=== PATIENT | female | born 1965 | race Caucasian/White ===

== ENCOUNTER 2016-03-26 15:15 | Inpatient (IN) | payer BC ==
[~2016-03-26] VITALS: Ht 170.2 cm; Wt 101.0 kg
[~2016-03-26 15:15] MED LIST: ALLEGRA30 MG PO; ASPIRIN EC325 MG PO; BIOTIN1000 MCG PO; HYDROCODON-ACE1 EAC7 PO; LEVOCETIRIZINE D5 MG PO; LEXAPRO20 MG PO; LIPITOR10 MG PO; LIPITOR5 MG PO; PREMARIN0.3 MG PO; PREMARIN0.625 MG PO; STRATTERA60 MG PO
[2016-03-26] MEDS ORDERED: MOTRIN600 MG PO (15:59)
[2016-03-26 16:10] LABS: BASOPHIL COUNT 0.1 K/uL (0-0.1); EOSINOPHIL (%) 0.9 % (0-5); EOSINOPHIL COUNT 0.1 K/uL (0-0.3); HEMATOCRIT 37.4 % (36.0-46.0); IMMATURE GRANULOCYTE (%) 0.3 % (0.0-0.7); IMMATURE GRANULOCYTE COUNT 0.4 K/uL; LYMPHOCYTE COUNT 1.5 K/uL (1.0-2.8); MCH 30.5 PG (29.0-34.0); MCV 89.7 FL (83-99); MEAN PLAT.VOLUME 10.2 uM^3 (9.5-12.4); MONOCYTE (%) 11.9 % (3-12); MONOCYTE COUNT 1.8 K/uL (0-0.8); NEUTROPHIL (%) 76.4 % (45-76); NEUTROPHIL COUNT 11.5 K/uL (1.8-6.4); PLATELET COUNT 656 K/uL (156-360); RBC DIS.WIDTH-CV 13.7 % (11.8-14.6); RBC DIS.WIDTH-SD 43.5 % (39-53); RED BLOOD COUNT 4.17 M/uL (3.80-5.20)
[2016-03-26 16:16] LABS: CHLORIDE 100 mEq/L (99-109); POTASSIUM 3.9 mEq/L (3.7-5.4); SODIUM 135 mEq/L (136-147)
[2016-03-26 16:19] LABS: GLUCOSE 102 mg/dL (70-99)
[2016-03-26 16:20] LABS: ANION GAP 12 MEQ/L (2-14)
[2016-03-26 16:21] LABS: TOTAL BILIRUBIN 0.5 mg/dL (0.0-1.0)
[2016-03-26 16:22] LABS: ALKALINE PHOSPHATASE 104 IU/L (3-129); GFR ESTIMATE (CALCULATED) > 59 mL/min/
[2016-03-26 16:23] LABS: UREA NITROGEN (BUN) 8 mg/dL (9-23)
[2016-03-26 17:15] LABS: ADD MIUA? NO; BILIRUBIN NEGATIVE; BLOOD NEGATIVE; COLOR YELLOW ((YELLOW)); GLUCOSE (STRIP) NEGATIVE; KETONES NEGATIVE; LEUKOCYTES NEGATIVE; NITRITE NEGATIVE; PROTEIN (STRIP) 30; UCUL ADDED? NO; UROBILINOGEN 0.2 MG/DL (0.2-1.0)
[2016-03-26 17:27] LABS: SPECIFIC GRAVITY 1.071 (1.000-1.030)
[2016-03-26 20:08] VITALS: BP 134/72
[2016-03-26 23:46] VITALS: BP 108/59
[2016-03-27 04:08] VITALS: BP 122/74
[2016-03-27 07:20] VITALS: BP 112/68
[2016-03-27 07:33] LABS: ALKALINE PHOSPHATASE 75 IU/L (3-129); ANION GAP 9 MEQ/L (2-14); CHLORIDE 103 MEQ/L (99-109); GFR ESTIMATE (CALCULATED) > 59 mL/min/; GLUCOSE 118 mg/dL (70-99); HEMATOCRIT 33.2 % (36.0-46.0); MCH 30.2 PG (29.0-34.0); MCHC 32.2 G/DL (30.0-36.0); MEAN PLAT.VOLUME 10.3 uM^3 (9.5-12.4); PLATELET COUNT 579 K/uL (156-360); POTASSIUM 4.1 MEQ/L (3.7-5.4); RBC DIS.WIDTH-CV 14.1 % (11.8-14.6); RBC DIS.WIDTH-SD 48.2 % (39-53); RED BLOOD COUNT 3.54 M/uL (3.80-5.20); SAMPLE HEMOLYSIS CHECK 0; SAMPLE ICTERIC CHECK 0; SAMPLE LIPEMIA CHECK 0; SODIUM 137 MEQ/L (136-147); TOTAL BILIRUBIN 0.4 MG/DL (0.0-1.0); UREA NITROGEN (BUN) 7 mg/dL (9-23)
[2016-03-27 07:37] LABS: MCV 93.8 FL (83-99); WHITE BLOOD COUNT 5.3 K/uL (4.1-10.2)
[2016-03-27 11:20] VITALS: BP 107/63
[2016-03-27 15:00] VITALS: BP 121/71
[2016-03-27 23:42] VITALS: BP 121/77
[2016-03-28 08:00] VITALS: BP 117/76
[2016-03-28 08:01] VITALS: BP 117/76
[2016-03-28 09:25] LABS: HEMATOCRIT 36.3 % (36.0-46.0); MCH 30.5 PG (29.0-34.0); MCHC 33.1 G/DL (30.0-36.0); MCV 92.4 FL (83-99); MEAN PLAT.VOLUME 10.1 uM^3 (9.5-12.4); PLATELET COUNT 633 K/uL (156-360); RBC DIS.WIDTH-CV 13.8 % (11.8-14.6); RBC DIS.WIDTH-SD 46.3 % (39-53); RED BLOOD COUNT 3.93 M/uL (3.80-5.20); WHITE BLOOD COUNT 4.8 K/uL (4.1-10.2)
[2016-03-28 09:54] LABS: ANION GAP 10 MEQ/L (2-14); CHLORIDE 101 MEQ/L (99-109); GFR ESTIMATE (CALCULATED) > 59 mL/min/; GLUCOSE 101 mg/dL (70-99); POTASSIUM 4.1 MEQ/L (3.7-5.4); SAMPLE HEMOLYSIS CHECK 0; SAMPLE ICTERIC CHECK 0; SAMPLE LIPEMIA CHECK 0; SODIUM 138 MEQ/L (136-147); UREA NITROGEN (BUN) 5 mg/dL (9-23)
[2016-03-28 17:15] VITALS: BP 144/82
[2016-03-28 23:34] VITALS: BP 114/72
[2016-03-29 08:00] VITALS: BP 122/75
[2016-03-29 12:17] VITALS: BP 127/82
[2016-03-29 16:00] VITALS: BP 128/73
[2016-03-29 20:00] VITALS: BP 131/87
[2016-03-29 23:45] VITALS: BP 123/77
[2016-03-30 04:00] VITALS: BP 132/81
[2016-03-30 08:00] VITALS: BP 138/69
[2016-03-30] MEDS ORDERED: AUGMENTIN875 MG PO (12:19)
== END 2016-03-30 14:21 | disposition home or self-care (01) | DRG 863 ==
LOC: EME 15:15 → EDOF 16:25 → 2EAST 16:25
PROVIDERS: Emergency Medicine; Physician Assistant
DX: T81.4XXA Infection following a procedure, initial encounter (principal); Z90.81 Acquired absence of spleen; Z90.411 Acquired partial absence of pancreas; D72.829 Elevated white blood cell count, unspecified; D47.3 Essential (hemorrhagic) thrombocythemia
CPT/HCPCS: 71020; 74177; 80048; 80053; 81003; 83605; 85025; 85027; 87040; 99281; 99285; J1170; J1650; J2405; J2543; J7030; J7042; J7050

== ENCOUNTER → 2016-05-07 | Outpatient (CLI) | payer BC ==
[~2016-05-07] MED LIST changes: +AUGMENTIN875 MG PO; +GLEEVEC400 MG PO; +MOTRIN600 MG PO
[2016-05-07 13:53] LABS: MCH 30.1 PG (29.0-34.0); MCHC 33.2 G/DL (30.0-36.0); MCV 90.5 FL (83-99); MEAN PLAT.VOLUME 11.2 uM^3 (9.5-12.4); PLATELET COUNT 393 K/uL (156-360); RBC DIS.WIDTH-CV 14.3 % (11.8-14.6); RBC DIS.WIDTH-SD 47.5 % (39-53); RED BLOOD COUNT 4.09 M/uL (3.80-5.20); WHITE BLOOD COUNT 5.2 K/uL (4.1-10.2)
[2016-05-07 14:10] LABS: PROTHROMBIN TIME 10.3 (9.2-11.2); PTT 27.1 (25-32)
== END | disposition home or self-care (01) ==
LOC: OPR 12:52 → EDSTATUS 13:00 → OPR 13:00
PROVIDERS: Surgery
DX: K65.1 Peritoneal abscess (principal); C49.A2 Gastrointestinal stromal tumor of stomach; Z53.09 Procedure and treatment not carried out because of other contraindication
CPT/HCPCS: 74177; 85027; 85610; 85730; J3010